=== PATIENT | female | born 1940 | race Caucasian/White ===

== ENCOUNTER → 2016-11-26 | Outpatient (CLI) | payer MEDICARE ==
[~2016-11-26] MED LIST: ALBUTEROL17 GM INH; CIPRO PO; CORGARD PO; COUMADIN PO; GLUCOTROL XL PO; JANUMET 50-5001 EACH PO; JANUVIA PO; LIPITOR PO; LISINOPRIL PO; METFORMIN PO; METOPROLOL SUC PO; PROTONIX PO; SIMVASTATIN40 MG PO; VITAMIN C500 M1 PO; VITAMIN D250000 UNIT PO; ZOCOR PO
== END | disposition home or self-care (01) ==
LOC: CSSDAY 15:33
DX: M81.0 Age-related osteoporosis without current pathological fracture (principal)
CPT/HCPCS: 96372; J0897